=== PATIENT | male | born 1980 | race Two or more races ===

== ENCOUNTER 2022-06-08 08:34 | Emergency (ER) | payer SELFPAY ==
[~2022-06-08] VITALS: Ht 180.3 cm; Wt 89.0 kg
[2022-06-08 10:14] VITALS: BP 117/70
[2022-06-08] MEDS ORDERED: TAMIFLU PO (10:42)
[2022-06-08] MEDS ORDERED: BENZ100C19 PO (10:42)
[2022-06-08] MEDS ORDERED: LORA-483 GT (10:42)
[2022-06-08] MEDS ORDERED: ACET-1158 PO (10:42)
== END 2022-06-08 10:48 | disposition home or self-care (01) ==
LOC: ER 08:34
DX: J10.1 Influenza due to other identified influenza virus with other respiratory manifestations (principal); Z20.822 Contact with and (suspected) exposure to COVID-19
CPT/HCPCS: 36415; 87426; 87804

== ENCOUNTER 2022-12-09 12:02 | Emergency (ER) | payer OTHER ==
[~2022-12-09] VITALS: Ht 180.3 cm; Wt 89.2 kg
[~2022-12-09 12:02] MED LIST: ACET500T58 PO; BENZ100C19 PO; LORA-483 GT; TAMIFLU PO
[2022-12-09 12:34] VITALS: BP 133/97
[2022-12-09] MEDS ORDERED: IBUP-1455 PO (15:15)
== END 2022-12-09 15:20 | disposition home or self-care (01) ==
LOC: ER 12:02
DX: S39.012A Strain of muscle, fascia and tendon of lower back, initial encounter (principal); Z79.1 Long term (current) use of non-steroidal anti-inflammatories (NSAID); Z79.899 Other long term (current) drug therapy; X50.0XXA Overexertion from strenuous movement or load, initial encounter; Y93.89 Activity, other specified; Y92.89 Other specified places as the place of occurrence of the external cause; Y99.0 Civilian activity done for income or pay
CPT/HCPCS: 72100